=== PATIENT | male | born 1955 | race Caucasian/White ===

== ENCOUNTER 2020-05-13 15:55 | Emergency (ER) | payer BC ==
[2020-05-13] MEDS ORDERED: Sodium Chloride 0.9% 10 ML Syringe FLUSH PRN (16:01)
[2020-05-13] MEDS ORDERED: Heparin Sodium 5,000 Units/ML Vial IVPUSH ONE (16:13)
[2020-05-13] MEDS ORDERED: Nitroglycerin 0.4 MG Tab.SL SL ONE ×3 (16:14→16:24)
[2020-05-13] MEDS ORDERED: Heparin Sodium/0.45% NaCl 500 ML IV SCH (16:14)
[2020-05-13] MEDS ORDERED: HYDROmorphone 2 MG/ML SDV IVPUSH ONE (16:20)
[2020-05-13] MEDS ORDERED: Ticagrelor 90 MG Tab PO ONE (16:23)
--- NOTE | 2020-05-13 16:31 | EDM.PDOC ---
ED HPI GENERAL MEDICAL PROBLEM - General Stated Complaint: CHEST PAINS Time Seen by Provider: 05/13/20 16:10 Source of Information: Reports: Patient History Limitations: Reports: No Limitations - History of Present Illness INITIAL COMMENTS - FREE TEXT/NARRATIVE: Patient presented to the ED because of chest pain over the left chest and left arm which started at about 1340. The pain is pressure and occasionally sharp, 5/10. There is no nausea,vomiting, dyspnea or diaphoresis. He is otherwise, healthy and is not on any medications. His father had AMI at age 65. - Related Data Allergies Allergy/AdvReac Type Severity Reaction Status Date / Time No Known Allergies Allergy Verified 05/13/20 16:25 Home Meds: Home Meds NK [No Known Home Meds] 05/13/20 [History] ED ROS GENERAL - Review of Systems Review Of Systems: See Below Constitutional: Reports: No Symptoms HEENT: Reports: No Symptoms Respiratory: Reports: No Symptoms Cardiovascular: Reports: Chest Pain Endocrine: Reports: No Symptoms GI/Abdominal: Reports: No Symptoms : Reports: No Symptoms Musculoskeletal: Reports: No Symptoms Skin: Reports: No Symptoms Psychiatric: Reports: No Symptoms Hematologic/Lymphatic: Reports: No Symptoms ED EXAM, GENERAL - Physical Exam Exam: See Below Exam Limited By: No Limitations General Appearance: Alert, No Apparent Distress Eye Exam: Bilateral Eye: PERRL Ears: Normal External Exam, Normal Canal Nose: Normal Inspection, Normal Mucosa, No Blood Throat/Mouth: Normal Inspection, Normal Lips, Normal Teeth Head: Atraumatic, Normocephalic Neck: Normal Inspection, Supple, Non-Tender Respiratory/Chest: No Respiratory Distress, Lungs Clear, Normal Breath Sounds Cardiovascular: Normal Peripheral Pulses, Regular Rate, Rhythm, No Edema, No Gallop GI/Abdominal: Normal Bowel Sounds, Soft, Non-Tender, No Organomegaly Back Exam: Normal Inspection Extremities: Normal Inspection Neurological: Alert, Oriented, CN II-XII Intact Psychiatric: Normal Affect, Normal Mood Skin Exam: Warm Course - Vital Signs Text/Narrative:: Labs/EKG/CXR was discussed with patient and and verbalized full understanding EKG-NSR with STEMI Cardiology consult was done with 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 [facility] ASA 324 mg PO x1 Heparin bolus @ 5,000 U IV Heparin drip @ 1,000 U IV Dilaudid 2 mg IV x1 Brilinta 180 mg po x1 Nitroglycerin drip Last Recorded V/S: Last Vital Signs Temp 36.4 C 05/13/20 16:31 Pulse Resp 18 05/13/20 16:31 BP 123/72 05/13/20 16:24 Pulse Ox 94 L 05/13/20 16:31 - Orders/Labs/Meds Orders: Active Orders 24 hr Category Date Time Status EKG Documentation Completion [RC] ASDIRECTED Care 05/13/20 16:02 Ordered Chest 1V Frontal [CR] Stat Exams 05/13/20 16:01 Ordered Heparin 25,000 Units @ 20MLS/HR Med 05/13/20 16:14 Ordered Heparin Sodium/0.45% NaCl [Heparin 25,000 Units in 1/2 NS 500 ML] 500 ml IV ASDIRECTED Nitroglycerin 25 MG in D5W @ 10 MCG/MIN(250ml) Premix Med 05/13/20 16:45 Ordered Nitroglycerin/D5W [Nitroglycerin 25 MG/D5W 250 ML] 25 mg in 250 ml IV TITRATE Sodium Chloride 0.9% [Saline Flush] Med 05/13/20 16:01 Ordered 10 ml FLUSH ASDIRECTED PRN Saline Lock Insert [OM.PC] Routine Oth 05/13/20 16:01 Ordered EKG 12 Lead [EK] Routine Ther 05/13/20 16:01 Ordered Medication Orders Heparin Sodium/Sodium Chloride (Heparin 25,000 Units In 1/2 Ns 500 Ml) 500 mls @ 20 mls/hr IV ASDIRECTED CRISTINE Last Admin: 05/13/20 16:18 Dose: 20 mls/hr Documented by: Nitroglycerin/Dextrose (Nitroglycerin 25 Mg/D5w 250 Ml) 25 mg in 250 mls @ 6 mls/hr IV TITRATE CRISTINE; Protocol Sodium Chloride (Saline Flush) 10 ml FLUSH ASDIRECTED PRN PRN Reason: Keep Vein Open Labs: Laboratory Tests 05/13/20 05/13/20 05/13/20 Range/Units 16:05 16:05 16:05 WBC 11.3 (4.5-12.0) X10-3/uL RBC 4.68 (4.30-5.75) x10(6)uL Hgb 13.8 (13.5-17.8) g/dL Hct 42.3 (30.0-51.3) % MCV 90.4 (80-96) fL MCH 29.6 (27.7-33.6) pg MCHC 32.7 (32.2-35.4) g/dL RDW 13.3 (11.5-15.5) % Plt Count 352 (125-369) X10(3)uL MPV 7.5 (7.4-10.4) fL Neut % (Auto) 56.8 (46-82) % Lymph % (Auto) 35.8 (13-37) % Custer % (Auto) 6.7 (4-12) % Eos % (Auto) 0 L (1.0-5.0) % Baso % (Auto) 1 (0-2) % Neut # (Auto) 6.4 (1.6-8.3) # Lymph # (Auto) 4.0 (0.6-5.0) # Custer # (Auto) 0.8 (0.0-1.3) # Eos # (Auto) 0.0 (0.0-0.8) # Baso # (Auto) 0.1 (0.0-0.2) # PT 10.2 (9.0-11.1) sec INR 0.94 L (1.00-1.24) APTT 20.5 L (24.4-33.2) SECONDS Sodium 148 H (135-145) mmol/L Potassium 3.5 (3.5-5.3) mmol/L Chloride 110 (100-110) mmol/L Carbon Dioxide 23 (21-32) mmol/L BUN 19 H (7-18) mg/dL Creatinine 1.4 H (0.70-1.30) mg/dL Est Cr Clr Drug Dosing TNP Estimated GFR (MDRD) 51 L (>60) BUN/Creatinine Ratio 13.6 (9-20) Glucose 133 H (80-116) mg/dL Calcium 9.0 (8.6-10.2) mg/dL Total Bilirubin 1.1 (0.1-1.3) mg/dL AST 23 (5-25) IU/L ALT 24 (12-36) U/L Alkaline Phosphatase 51 L (56-112) IU/L Troponin I (4.0-60.3) pg/mL NT-Pro-B Natriuret Pep (<=125) pg/mL Total Protein 7.0 (6.0-8.0) g/dL Albumin 4.0 (3.2-4.6) g/dL Globulin 3.0 g/dL Albumin/Globulin Ratio 1.3 05/13/20 Range/Units 16:05 WBC (4.5-12.0) X10-3/uL RBC (4.30-5.75) x10(6)uL Hgb (13.5-17.8) g/dL Hct (30.0-51.3) % MCV (80-96) fL MCH (27.7-33.6) pg MCHC (32.2-35.4) g/dL RDW (11.5-15.5) % Plt Count (125-369) X10(3)uL MPV (7.4-10.4) fL Neut % (Auto) (46-82) % Lymph % (Auto) (13-37) % Custer % (Auto) (4-12) % Eos % (Auto) (1.0-5.0) % Baso % (Auto) (0-2) % Neut # (Auto) (1.6-8.3) # Lymph # (Auto) (0.6-5.0) # Custer # (Auto) (0.0-1.3) # Eos # (Auto) (0.0-0.8) # Baso # (Auto) (0.0-0.2) # PT (9.0-11.1) sec INR (1.00-1.24) APTT (24.4-33.2) SECONDS Sodium (135-145) mmol/L Potassium (3.5-5.3) mmol/L Chloride (100-110) mmol/L Carbon Dioxide (21-32) mmol/L BUN (7-18) mg/dL Creatinine (0.70-1.30) mg/dL Est Cr Clr Drug Dosing Estimated GFR (MDRD) (>60) BUN/Creatinine Ratio (9-20) Glucose (80-116) mg/dL Calcium (8.6-10.2) mg/dL Total Bilirubin (0.1-1.3) mg/dL AST (5-25) IU/L ALT (12-36) U/L Alkaline Phosphatase (56-112) IU/L Troponin I 24.4 (4.0-60.3) pg/mL NT-Pro-B Natriuret Pep 132 H (<=125) pg/mL Total Protein (6.0-8.0) g/dL Albumin (3.2-4.6) g/dL Globulin g/dL Albumin/Globulin Ratio Meds: Medications Generic Name Dose Route Start Last Admin Trade Name Freq PRN Reason Stop Dose Admin Heparin Sodium/Sodium Chloride 500 mls @ 20 mls/hr 05/13/20 16:14 05/13/20 16:18 Heparin 25,000 Units In 1/2 Ns 500 Ml IV 20 mls/hr ASDIRECTED CRISTINE Administration Nitroglycerin/Dextrose 25 mg in 250 mls @ 6 mls/hr 05/13/20 16:45 Nitroglycerin 25 Mg/D5w 250 Ml IV TITRATE CRISTINE Protocol 10 MCG/MIN Sodium Chloride 10 ml 05/13/20 16:01 Saline Flush FLUSH ASDIRECTED PRN Keep Vein Open Discontinued Medications Generic Name Dose Route Start Last Admin Trade Name Brian PRN Reason Stop Dose Admin Heparin Sodium (Porcine) 5,000 units 05/13/20 16:13 05/13/20 16:21 Heparin Sodium IVPUSH 05/13/20 16:14 5,000 units ONETIME ONE Administration Hydromorphone HCl 2 mg 05/13/20 16:20 05/13/20 16:26 Dilaudid IVPUSH 05/13/20 16:21 2 mg ONETIME ONE Administration Nitroglycerin 0.4 mg 05/13/20 16:14 05/13/20 16:10 Nitrostat SL 05/13/20 16:15 0.4 mg ONETIME ONE Administration Nitroglycerin 0.4 mg 05/13/20 16:15 05/13/20 16:16 Nitrostat SL 05/13/20 16:16 0.4 mg ONETIME ONE Administration Nitroglycerin 0.4 mg 05/13/20 16:24 05/13/20 16:24 Nitrostat SL 05/13/20 16:25 0.4 mg ONETIME ONE Administration Ticagrelor 180 mg 05/13/20 16:23 05/13/20 16:39 Brilinta PO 05/13/20 16:24 180 mg ONETIME ONE Administration Departure - Departure Time of Disposition: 15:45 Disposition: Home, Self-Care 01 Condition: Good Clinical Impression: STEMI (ST elevation myocardial infarction) Referrals: PCP,None [Ordering Only Provider] - Sepsis Event Note (ED) - Focused Exam Vital Signs: Vital Signs Temp Resp BP Pulse Ox 05/13/20 16:31 36.4 C 18 94 L 05/13/20 16:24 123/72 05/13/20 16:16 135/75 05/13/20 16:10 155/82 H - My Orders Last 24 Hours: My Active Orders 05/13/20 16:01 Chest 1V Frontal [CR] Stat Sodium Chloride 0.9% [Saline Flush] 10 ml FLUSH ASDIRECTED PRN Saline Lock Insert [OM.PC] Routine EKG 12 Lead [EK] Routine 05/13/20 16:02 EKG Documentation Completion [RC] ASDIRECTED 05/13/20 16:14 Heparin 25,000 Units @ 20MLS/HR Heparin Sodium/0.45% NaCl [Heparin 25,000 Units in 1/2 NS 500 ML] 500 ml IV ASDIRECTED 05/13/20 16:45 Nitroglycerin 25 MG in D5W @ 10 MCG/MIN(250ml) Premix Nitroglycerin/D5W [Nitroglycerin 25 MG/D5W 250 ML] 25 mg in 250 ml IV TITRATE - Assessment/Plan Last 24 Hours: My Active Orders 05/13/20 16:01 Chest 1V Frontal [CR] Stat Sodium Chloride 0.9% [Saline Flush] 10 ml FLUSH ASDIRECTED PRN Saline Lock Insert [OM.PC] Routine EKG 12 Lead [EK] Routine 05/13/20 16:02 EKG Documentation Completion [RC] ASDIRECTED 05/13/20 16:14 Heparin 25,000 Units @ 20MLS/HR Heparin Sodium/0.45% NaCl [Heparin 25,000 Units in 1/2 NS 500 ML] 500 ml IV ASDIRECTED 05/13/20 16:45 Nitroglycerin 25 MG in D5W @ 10 MCG/MIN(250ml) Premix Nitroglycerin/D5W [Nitroglycerin 25 MG/D5W 250 ML] 25 mg in 250 ml IV TITRATE
[2020-05-13] MEDS ORDERED: Nitroglycerin/D5W 25 MG/250 ML BOTTLE IV SCH (16:45)
== END 2020-05-13 17:10 | disposition home or self-care (01) ==
LOC: FB.ED 15:55
DX: I21.4 Non-ST elevation (NSTEMI) myocardial infarction (principal)
CPT/HCPCS: 36415; 71045; 80053; 83880; 84484; 85025; 85610; 85730; 93005; 93010; 96365; 96368; 96375; 96376; 99283; 99285-25; A9270-GY; J1170; J1644; J3490